=== PATIENT | female | born 1950 | race Two or more races ===

== ENCOUNTER 2021-07-20 17:20 | Emergency (ER) | payer OTHER ==
[~2021-07-20] VITALS: Ht 160 cm; Wt 62.1 kg
[2021-07-20] MEDS ORDERED: GLUMETZA1000 MG (17:32)
[2021-07-20] MEDS ORDERED: GLIMEPIRIDE1 MG (17:32)
[2021-07-20] MEDS ORDERED: LIPITOR20 MG (17:32)
[2021-07-20] MEDS ORDERED: UNITHROID75 MCG (17:33)
[2021-07-20] MEDS ORDERED: NORVASC10 MG (17:33)
[2021-07-20] MEDS ORDERED: TIROSINT50 MCG (17:33)
[2021-07-20] MEDS ORDERED: TOPROL XL50 M1 (17:34)
== END 2021-07-20 22:11 | disposition home or self-care (01) ==
LOC: ER 17:20
DX: R42 Dizziness and giddiness (principal)